=== PATIENT | female | born 1960 | race African-American/Black ===

== ENCOUNTER 2023-02-15 14:46 | Emergency (ER) | payer MEDICAID ==
[~2023-02-15] VITALS: Ht 149.9 cm; Wt 63.0 kg
[~2023-02-15 14:46] MED LIST: ALBU18HF2 IH; DILT120C88 MT; FURO-151 MT
[2023-02-15 15:01] VITALS: BP 166/124; PULSE 88; RESP 18; TEMP 98.7; O2SAT 99
[2023-02-15] MEDS ORDERED: DICYCLOMINE 10 MG/5 ML ORAL SYR PO NR (15:11)
[2023-02-15] MEDS ORDERED: ONDANSETRON HCL 4MG/2ML INJ IV NR (15:11)
[2023-02-15] MEDS ORDERED: KETOROLAC 30MG/ML VIAL IV NR (15:11)
[2023-02-15] MEDS ORDERED: MAGNESIUM/ALUMINUM HYDROXIDE/SIMETHICONE 30ML UDC PO NR (15:11)
[2023-02-15 17:10] LABS: HEMATOCRIT. 44.6 % (36.0-48.0); HEMOGLOBIN. 13.6 g/dL (12.0-16.0); MEAN CORPUSCULAR HEMOGLOBIN 22.8 pg (28.0-32.0); MEAN CORPUSCULAR HGB CONC 30.5 g/dL (31.0-37.0); MEAN CORPUSCULAR VOLUME 74.6 fL (81.0-99.0); RED BLOOD CELL COUNT 5.98 mill/uL (4.2-5.4); WHITE BLOOD COUNT 4.7 x1000/uL (4.5-11.0)
[2023-02-15 17:24] LABS: CHLORIDE 110 mEq/L (98-107); INDEX HEMOLYSI 1 (1-3); INDEX ICTERIC 1 (1-4); INDEX LIPEMIC 1 (1-3); POTASSIUM 4.3 mEq/L (3.5-5.1); SODIUM 139 mEq/L (136-145)
[2023-02-15 17:32] LABS: DIFFERENTIAL COMMENT 1
[2023-02-15 17:55] LABS: ALANINE AMINOTRANSFERASE 24 IU/L (13-61); ALBUMIN 3.2 g/dL (3.4-5.0); ASPARTATE AMINOTRANSFERASE 17 IU/L (15-37); BILIRUBIN TOTAL 0.4 mg/dL (0.1-1.0); CALCIUM 8.7 mg/dL (8.5-10.1); CARBON DIOXIDE 26 mEq/L (21-32); CREATININE 0.6 mg/dL (0.6-1.3); GLUCOSE 95 mg/dL (70-105); PROTEIN TOTAL 7.2 g/dL (6.0-8.3); TROPONIN I HIGH SENSITIVITY 22 ng/L (<54); UREA NITROGEN BLOOD 19 mg/dL (7-21)
[2023-02-15 18:24] LABS: ANISOCYTOSIS 1+; PLATELET ESTIMATE DECREASED
[2023-02-15 18:25] LABS: HYPOCHROMASIA 1+; MICROCYTOSIS 1+
[2023-02-15 18:26] LABS: MEAN PLATELET VOLUME 10.5 fl (7.4-10.4); PLATELET 88 x1000/uL (130-400)
== END 2023-02-15 18:04 | disposition left against medical advice (07) ==
LOC: ER 14:46
DX: R10.9 Unspecified abdominal pain (principal); I11.0 Hypertensive heart disease with heart failure; I50.9 Heart failure, unspecified; E78.00 Pure hypercholesterolemia, unspecified; J44.9 Chronic obstructive pulmonary disease, unspecified; F15.90 Other stimulant use, unspecified, uncomplicated; F19.90 Other psychoactive substance use, unspecified, uncomplicated; F14.90 Cocaine use, unspecified, uncomplicated
CPT/HCPCS: 36415; 71045; 74176; 80053; 83605; 84484; 85025; 93005; 99285

== ENCOUNTER 2023-06-14 19:53 | Emergency (ER) | payer MEDICAID ==
[~2023-06-14] VITALS: Ht 162.6 cm; Wt 65.0 kg
[2023-06-14 20:21] VITALS: BP 159/90; PULSE 70; RESP 18; TEMP 98.4
[2023-06-15 00:26] LABS: ACETAMINOPHEN < 2 ug/mL (10-30); ALANINE AMINOTRANSFERASE 14 IU/L (10-49); ALBUMIN 3.6 g/dL (3.2-4.8); ASPARTATE AMINOTRANSFERASE 22 IU/L (<34); BILIRUBIN TOTAL 0.5 mg/dL (0.1-1.0); CALCIUM 8.9 mg/dL (8.7-10.4); CARBON DIOXIDE 26 mEq/L (21-32); CHLORIDE 109 mEq/L (98-107); CREATININE 0.7 mg/dL (0.6-1.0); GLUCOSE 93 mg/dL (70-105); POTASSIUM 4.1 mEq/L (3.5-5.1); PROTEIN TOTAL 6.9 g/dL (6.0-8.3); SODIUM 141 mEq/L (136-145); UREA NITROGEN BLOOD 12 mg/dL (9-23)
[2023-06-15 00:29] LABS: MEAN CORPUSCULAR HGB CONC 30.4 g/dL (31.0-37.0)
[2023-06-15 00:35] LABS: BASOPHILS % 0.5 % (0.0-2.0); EOSINOPHILS % 0.8 % (0.0-5.0); HEMATOCRIT. 40.9 % (36.0-48.0); HEMOGLOBIN. 12.4 g/dL (12.0-16.0); LYMPHOCYTES % 19.5 % (20.0-50.0); MEAN CORPUSCULAR HEMOGLOBIN 23.5 pg (28.0-32.0); MEAN CORPUSCULAR VOLUME 77.3 fL (81.0-99.0); MEAN PLATELET VOLUME 10.9 fl (7.4-10.4); MONOCYTES % 12.9 % (2.0-8.0); NEUTROPHILS % 66.3 % (40.0-76.0); PLATELET 98 x1000/uL (130-400); RED BLOOD CELL COUNT 5.29 mill/uL (4.2-5.4); RED CELL DISTRIBUTION WIDTH 15.8 % (11.6-14.6); WHITE BLOOD COUNT 7.2 x1000/uL (4.5-11.0)
[2023-06-15 00:37] LABS: ETHANOL BLOOD < 10 mg/dL (<10)
[2023-06-15 01:04] LABS: DIFFERENTIAL COMMENT 1
[2023-06-15] MEDS ORDERED: ACETAMINOPHEN 325MG TABLET PO ONE (07:15)
[2023-06-15] MEDS ORDERED: IBUPROFEN 400MG TABLET PO ONE (07:15)
[2023-06-15 08:25] LABS: *AMPHETAMINES SCREEN URINE NEGATIVE (NEGATIVE); *BARBITURATES SCREEN URINE NEGATIVE (NEGATIVE); *BENZODIAZEPINES SCREEN URINE NEGATIVE (NEGATIVE); *COCAINE SCREEN URINE PRESUMPTIVE POSITIVE (NEGATIVE); CANNABINOID URINE SCREEN PRESUMPTIVE POSITIVE (NEGATIVE); ECSTASY MDMA SCREEN URINE NEGATIVE (NEGATIVE); METHADONE URINE SCREEN Neg (NEGATIVE); OPIATES URINE SCREEN NEGATIVE (NEGATIVE); PHENCYCLIDINE URINE SCREEN PRESUMTIVE POSITIVE (NEGATIVE)
== END 2023-06-15 09:05 | disposition home or self-care (01) ==
LOC: ER 19:53
DX: M25.552 Pain in left hip (principal); M25.551 Pain in right hip; I49.9 Cardiac arrhythmia, unspecified; Z86.59 Personal history of other mental and behavioral disorders; Z76.89 Persons encountering health services in other specified circumstances
CPT/HCPCS: 36415; 80053; 80305; 80307; 80320; 80329; 85025; 99283; G0480